=== PATIENT | male | born 1975 | race Hispanic/Latino ===

== ENCOUNTER 2024-04-02 16:33 | Emergency (ER) | payer MEDICARE, OTHER ==
[~2024-04-02] VITALS: Ht 177.8 cm; Wt 65.8 kg
[2024-04-02 16:35] VITALS: BP 100/64; PULSE 64; RESP 18
[2024-04-02] MEDS: TETRACAINE HCL 0.5% 4 ML OPHTH SOLN OP STA (18:00)
[2024-04-02] MEDS ORDERED: CILOOO OD (18:28)
[2024-04-02] MEDS: FLUORESCEIN SODIUM 1 STRIP STRIP ONE (20:52)
== END 2024-04-02 20:54 | disposition home or self-care (01) ==
LOC: EDH 16:33
DX: H57.8A2 Foreign body sensation, left eye (principal)

== ENCOUNTER 2025-03-08 09:50 | Emergency (ER) | payer SELFPAY ==
[~2025-03-08] VITALS: Ht 177.8 cm; Wt 65.8 kg
[~2025-03-08 09:50] MED LIST: CILOOO OD
[2025-03-08] MEDS: ketOROlac 15MG/ML VIAL (15MG/ML) IM ONE (10:38)
--- NOTE | 2025-03-08 11:07 | HMCIMG ---
Exam Type: HAND 3+VWS LT Clinical Information: 3rd digit pain, injury Comparison: None Findings: The bone examination is unremarkable. No fractures or dislocations are seen. No radiopaque foreign bodies are noted. Soft tissues are preserved. IMPRESSION: Normal examination.
[2025-03-08] MEDS ORDERED: AMOX1TAB16 PO (11:54)
--- NOTE | 2025-03-08 11:54 | ERN ---
General Chief Complaint: Finger Injury Stated Complaint: "FINGER IS GROWING" Time Seen by MD: 10:08 Time Seen by Midlevel: 10:08 Source: patient History of Present Illness Initial Comments 49-year-old male who presents to the emergency department stating "his finger is growing". Patient reports he had a crush finger injury one year ago. However initiated with finger pain and swelling one week ago. Patient denies any other injuries to the hand/finger, but states that he works a lot with his hands. Denies any significant past medical history. Allergies: Coded Allergies: No Known Drug Allergies (Unverified Allergy, Unknown, 04/02/24) Home Meds Active Scripts Amoxicillin/Potassium Clav (Amox Tr-K Clv 875-125 mg Tab) 875 Mg-125 Mg Tablet, 1 EACH PO BID for 7 Days, #14 TAB 0 Refills Prov:DWIGHT ROSE 03/08/25 Ciprofloxacin HCl (Ciprofloxacin 0.3% Opth Oint) 0.3 % Ooint, 1 APPL OD Q2HPRN for 2 Days, #1 APPL Prov:DWIGHT ROSE 04/02/24 Past Medical History Past Medical History: No Pertinent History Past Surgical History: None ROS Dictation Constitutional: Negative for fever,chills, and weight loss Eyes: Negative for injury, pain,redness, and discharge ENT: Negative for injury,pain or swelling Cardiovascular: Negative for chest pain, palpitations, and edema Respiratory: Negative for shortness of breath, cough, and wheezing, Abdomen/GI: Negative for abdominal pain, nausea, vomiting, diarrhea, and constipation Back: Negative for injury and pain : Negative for painful urination, bleeding or discharge MS/Extremity: Positive for finger swelling Negative for injury and deformity Skin: Negative for rash, and discoloration Neuro: Negative for headache, weakness, numbness, tingling, and seizure Psych: Negative for suicide ideation, homicidal ideation, and hallucinations Physical Exam Physical Exam Dictation General: awake, alert, no acute distress Head/Face: Normocephalic, atraumatic Eyes: PERRL, EOMI, normal conjunctiva ENT: oral cavity clear, oral mucosa moist Neck: Supple, normal range of motion Cardiovascular: RRR, normal S1/S2 Respiratory: CTAB, no respiratory distress Skin: Warm, dry, normal turgor, no rash MS/Extremity: Pulses equal, no cyanosis, neurovascular intact, FROM. Left hand 3rd digit tenderness and mild swelling to the distal aspect 3rd digit, no erythema, no ecchymosis Neuro: COAx4, GCS 15, strength 5/5, CN 2-12 intact, normal cerebellar exam, normal gait Psych: Normal behavior, mood, and affect normal Results EKG/XRAY/US/CT/MRI X-RAY Comment REASON: 3rd digit pain, injury ORDERING PHYSICIAN: DWIGHT ROSE PROCEDURE: HAND 3V LT - HAND 3+VWS LT Exam Type: HAND 3+VWS LT Clinical Information: 3rd digit pain, injury Comparison: None Findings: The bone examination is unremarkable. No fractures or dislocations are seen. No radiopaque foreign bodies are noted. Soft tissues are preserved. IMPRESSION: Normal examination. DICTATED BY: JIE BLOOD MD DATE: 03/08/25 1102 MDM MDM: Differential diagnosis: Abscess, fracture, fluid retention, sprain, strain Rationale: 49-year-old male who presents to the emergency department stating "his finger is growing". Patient reports he had a crush finger injury one year ago. However initiated with finger pain and swelling one week ago. Patient denies any other injuries to the hand/finger, but states that he works a lot with his hands. Denies any significant past medical history. Per physical examination left hand 3rd digit distal aspect mild tenderness and swelling noted, no ecchymosis, no erythema, neurovascularly intact, normal range of motion. X-ray obtained of the left hand with no acute findings. Incision and drainage was performed to the distal aspect of the 3rd digit with pustular drainage. Patient was prescribed antibiotics. Educated on findings and diagnosis. Advised to follow up with PCP. Return to the emergency department for any worsening symptoms. Patient verbalized understanding. Patient stable for discharge. There are no social concerns with this patient. I independently interpreted the test that were performed, results were reviewed by me and considered findings on radiology if ordered. Medical management and examination interpretation discussions were had by me with other qualified healthcare professionals as indicated for the patient's care. ED Course Orders Procedure Category Date Status Time Ketorolac PHA 03/08/25 Complete Tromethamine 15mg/Ml 10:30 Hand 3+Vws Lt RAD 03/08/25 Resulted 10:14 Current Medications Medications (Trade) Dose Ordered Sig/Prasanna Route PRN Reason Start Time Stop Time Status Last Admin Dose Admin Ketorolac Tromethamine (toRADol) 15 mg ONCE ONCE IM 03/08/25 10:30 03/08/25 10:31 DC 03/08/25 10:38 Vital Signs Date Time Temp Pulse Resp B/P (MAP) Pulse Ox O2 Delivery O2 Flow Rate FiO2 03/08/25 11:55 84.9 85 14 110/69 97 Room Air* 0 21 03/08/25 09:51 97.5 93 12 115/71 97 Room Air 0 Procedure Dictation Incision and drainage Date: 03/08/2025 Anesthetic: Digital block with 4mL 1% lidocaine 18 gauge needle used for puncture Pustular drainage Performed by self No complications, patient tolerated well DX & DISP Disposition: Discharge Departure Impression: Primary Impression: Abscess of middle finger Condition: Stable Scripts Amoxicillin/Potassium Clav (Amox Tr-K Clv 875-125 mg Tab) 875 Mg-125 Mg Tablet 1 EACH PO BID for 7 Days, #14 TAB 0 Refills Prov: DWIGHT ROSE 03/08/25 Additional Instructions: Discharge home. Rest. Follow up with primary care DrBrooklyn in 24 hours. Return to the ER for any acute changes or worsening symptoms. If any medications were prescribed take as directed. Okay to continue home medications unless otherwise discussed during your visit in the emergency room today. Patient was also advised to follow-up with primary care physician in 1 to 2 days for continued monitoring. Referrals: GEOVANNI DE LA ROSA MD (PCP) I performed the substantive portion of the visit. I have reviewed and personally made and approve the management plan that is documented in the notes by myself or the DAVE. I acknowledge full responsibility for the patient's management plan. DWIGHT ROSE Mar 08, 2025 11:54
[2025-03-08 11:55] VITALS: BP 110/69; PULSE 85; RESP 14; TEMP 85; O2SAT 97
== END 2025-03-08 11:58 | disposition home or self-care (01) ==
LOC: EDH 09:50
DX: L02.512 Cutaneous abscess of left hand (principal)
CPT/HCPCS: 99283; 26010; 73130; J1885

== ENCOUNTER 2025-05-26 08:40 | Emergency (ER) | payer SELFPAY ==
[~2025-05-26] VITALS: Ht 177.8 cm; Wt 72.6 kg
[~2025-05-26 08:40] MED LIST changes: +AMOX1TAB16 PO
[2025-05-26] MEDS ORDERED: NAPR-1196 PO (10:55)
[2025-05-26] MEDS ORDERED: CYCL5TAB3 PO (10:55)
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
[2025-05-26 11:20] VITALS: BP 108/72; PULSE 60; RESP 16; TEMP 97.8; O2SAT 97
--- NOTE | 2025-05-26 12:02 | HMCIMG ---
EXAM: CR left Hip, 2 View. CLINICAL HISTORY: pain COMPARISON: None provided. FINDINGS: BONES: No acute fracture or aggressive appearing osseous lesion. JOINTS: No dislocation. The joint spaces are normal. SOFT TISSUES: The soft tissues are unremarkable. IMPRESSION: No acute osseous abnormality. /[place]
== END 2025-05-26 11:35 | disposition home or self-care (01) ==
LOC: EDH 08:40
DX: S73.102A Unspecified sprain of left hip, initial encounter (principal); X58.XXXA Exposure to other specified factors, initial encounter; Y93.89 Activity, other specified; Y92.538 Other ambulatory health services establishments as the place of occurrence of the external cause; Y99.8 Other external cause status
CPT/HCPCS: 99283; 73502; 96372; J1885